=== PATIENT | female | born 1950 | race Caucasian/White ===

== ENCOUNTER → 2016-11-23 | Outpatient (CLI) | payer MEDICARE, BC ==
[~2016-11-23] MED LIST: ACET-2321 PO; ALLO100T51 PO; AMLO5TAB2 PO; ATOR40TA64 PO; BUPIVACAINE 0.5% (5mg/ml) 30ml INJ SDV ONE; CETI10TA83 PO; FENO145T20 PO; FLUT16SP12 NS; LIDOCAINE 1% (10mg/ml) 5ml VIAL ONE; LISI-621 PO; MAGN400C PO; METO-277 PO; MOME17SP2 EA NOSTRIL; MONT10TA22 PO; MULT-1175 PO; PANT40TA25 PO; TRAM50TA4 PO
--- NOTE | 2016-11-23 13:44 | DI ---
Indication:ITS.REASON: D63.1 ANEMIA IN CKD; R71.0 Precipitous drop in hematocrit; R78.9 Procedure:CT BIOPSY BONE PELVIS (MARROW) CT GUIDED BONE MARROW BIOPSY/ASPIRATION: The procedure including the benefits, risks, and alternatives were explained in detail to the patient. All of her questions were answered. They stated that they understood and wished to proceed. Informed consent was obtained. A pre-procedural timeout was done to verify the correct patient and procedure. Using sterile technique, local Xylocaine and Marcaine anesthesia, and CT guidance, an 11-gauge bone biopsy needle is advanced from a posterior approach into the right iliac bone. Approximately 20 cc of marrow is aspirated and a core biopsy was then taken. The needle was removed. There was no complication. Hemostasis was obtained and a compression bandage was applied. Following this the patient was monitored in the CT department for 15 min. They then left the radiology department in good condition. Impression: Successful bone marrow biopsy from the posterior aspect of the right iliac bone. Stevo Smith RPA/CHARLES performed this under my personal supervision. .
== END ==
LOC: IMA 10:58
PROVIDERS: ATTEND Internal Medicine Medical Oncology
DX: R93.8 Abnormal findings on diagnostic imaging of other specified body structures (principal); R78.9 Finding of unspecified substance, not normally found in blood; R71.0 Precipitous drop in hematocrit
CPT/HCPCS: 38221; 88305; 88311; 88313

== ENCOUNTER → 2016-12-14 | Outpatient (CLI) | payer MEDICARE, BC ==
[~2016-12-14] MED LIST changes: -BUPIVACAINE 0.5% (5mg/ml) 30ml INJ SDV ONE; -LIDOCAINE 1% (10mg/ml) 5ml VIAL ONE
[2016-12-14 11:54] LABS: IGA - IMMUNOGLOBULIN A 218.52 MG/DL (70-400); IGG - IMMUNOGLOBULIN G 962.88 MG/DL (700-1600); IGM - IMMUNOGLOBULIN M 96.19 MG/DL (40-230)
--- NOTE | 2016-12-14 12:04 | DI ---
EXAM: RIBS LEFT , three views COMPARISON: None available. HISTORY: ITS.REASON: D63.1 Anemia in chronic kidney diseas; M54.5 LOW BACK PAIN; N18.3 . FINDINGS: There is tortuosity to the descending aorta. The heart is upper limits of normal in size to mildly enlarged. The pulmonary vascularity appears unremarkable. No pulmonary contusion is identified. The left lung is clear. There is no evidence for pleural effusion. There is no evidence for a pneumothorax. Three views of left ribs shows no definite evidence for a displaced rib fracture. No chest wall abnormality is appreciated. IMPRESSION: Unremarkable exam. LOCATION OF DICTATION: [facility] [place] .
== END ==
LOC: IMA 11:17
PROVIDERS: ATTEND Internal Medicine Medical Oncology
DX: D63.1 Anemia in chronic kidney disease (principal); N18.3 Chronic kidney disease, stage 3 (moderate); M54.5 Low back pain
CPT/HCPCS: 36415; 82232; 82784; 82785; 83883; 84155; 84156; 84165; 84166; 86334; 86335